=== PATIENT | male | born 1950 | race Caucasian/White ===

== ENCOUNTER 2018-12-23 15:54 | Emergency (ER) | payer MEDICARE, OTHER ==
[~2018-12-23] VITALS: Ht 167.6 cm; Wt 65.3 kg
[2018-12-23 16:15] VITALS: BP 161/79
[2018-12-23] MEDS ORDERED: LIDOCAINE 1%-EPI 1:100,000 20 ML VIAL ONE (16:47)
[2018-12-23] MEDS ORDERED: LIDOCAINE 1%-EPI 1:100,000 50 ML VIAL IJ ONE (17:00)
[2018-12-23] MEDS ORDERED: CEFAZOLIN 1 GM VIAL IM ONE (17:00)
[2018-12-23] MEDS ORDERED: WATER FOR INJECTION,STERILE 10 ML ONE (17:20)
--- NOTE | 2018-12-23 17:40 | NUR ---
Patient discharged to home in stable condition. Written and verbal after care instructions given. Patient verbalizes understanding of instruction.
== END 2018-12-23 17:39 | disposition home or self-care (01) ==
LOC: ER 15:54
DX: L02.11 Cutaneous abscess of neck (principal)
CPT/HCPCS: 10060; 96372; 99283; A6407; J0690; J3490 ×2

== ENCOUNTER 2023-08-21 22:07 | Inpatient (IN) | payer MEDICARE, OTHER ==
[~2023-08-21] VITALS: Ht 157.5 cm; Wt 54.9 kg
[2023-08-21] MEDS: LEVOFLOXACIN 750 MG /D5W 150ML PIGGYBACK IV ONE (01:30)
[2023-08-21] MEDS ORDERED: methylPREDNISolone SOD SUCC 125 MG/2ML VIAL ONE (22:33)
[2023-08-21] MEDS: ALBUTEROL FS 2.5 MG/3 ML VIAL.NEB NEB ONE (22:34)
[2023-08-21] MEDS: IPRATROPIUM NEB FS 0.5 MG/2.5 ML AMPUL.NEB NEB ONE (22:34)
[2023-08-21] MEDS ORDERED: ALBUTEROL FS 2.5 MG/3 ML VIAL.NEB ONE (22:35)
[2023-08-21] MEDS ORDERED: IPRATROPIUM NEB FS 0.5 MG/2.5 ML AMPUL.NEB ONE (22:35)
[2023-08-21 22:55] VITALS: O2SAT 94
[2023-08-21 22:59] LABS: BASOPHILS # (AUTO) 0.1 K/uL (0.0-0.2); BASOPHILS % (AUTO) 0.2 % (0.0-2.0); EOSINOPHILS % (AUTO) 0.1 % (0.0-6.0); HEMATOCRIT 39 % (39-51); HEMOGLOBIN 12.6 g/dL (13.5-17.5); LYMPHOCYTES # (AUTO) 0.7 K/uL (0.8-4.8); LYMPHOCYTES % (AUTO) 2.1 % (20.0-44.0); MEAN CORPUSCULAR HEMOGLOBIN 28 PG (26.0-33.0); MEAN CORPUSCULAR HGB CONC 33 g/dl (31.0-36.0); MEAN CORPUSCULAR VOLUME 86 fL (80-96); MONOCYTES # (AUTO) 3.5 K/uL (0.1-1.30); MONOCYTES % (AUTO) 11.3 % (2.0-12.0); NEUTROPHILS # (AUTO) 26.7 K/uL (1.8-8.9); NEUTROPHILS % (AUTO) 86.3 % (43.0-81.0); PLATELET COUNT (AUTO) 275 K/uL (150-450); RED BLOOD CELL COUNT(AUTO) 4.46 MIL/uL (4.5-6.0); RED CELL DISTRIBUTION WIDTH 15.5 % (11.5-15.0)
[2023-08-21] MEDS: methylPREDNISolone SOD SUCC 125 MG/2ML VIAL IV ONE (23:00)
[2023-08-21 23:08] LABS: WHITE BLOOD COUNT (AUTO) 30.9 K/uL (4.3-11.0)
[2023-08-21 23:10] VITALS: O2SAT 99
[2023-08-21 23:10] LABS: CALCIUM, SERUM 9.1 mg/dL (8.5-10.1); CARBON DIOXIDE 29 mmol/L (21-32); CHLORIDE 94 mmol/L (98-107); CREATININE 1.1 mg/dL (0.6-1.3); GLUCOSE 96 mg/dL (74-106); POTASSIUM 4.5 mmol/L (3.5-5.1); SODIUM SERUM 131 mmol/L (136-145); UREA NITROGEN, BLOOD 26 mg/dL (7-18)
[2023-08-21 23:16] LABS: ALANINE AMINOTRANSFERASE 31 U/L (12-78); ALBUMIN 1.8 g/dL (3.4-5.0); ALKALINE PHOSPHATASE 81 U/L (46-116); ASPARTATE AMINOTRANSFERASE 55 U/L (15-37); BILIRUBIN,TOTAL 1.4 mg/dL (0.2-1.0); TOTAL PROTEIN, SERUM 6.1 g/dL (6.4-8.2)
[2023-08-21 23:27] LABS: LACTIC ACID 4.2 mmol/L (0.4-2.0)
[2023-08-21] MEDS ORDERED: LEVOFLOXACIN 750 MG /D5W 150ML 150 ML IV ONE (23:37)
[2023-08-21] MEDS ORDERED: CEFTRIAXONE 1GM BAG (ER ONLY) 50 ML IV ONE (23:37)
[2023-08-21] MEDS ORDERED: VANCOMYCIN 1 GM /D5W 250 ML PB IV ONE (23:37)
[2023-08-21] MEDS: CEFTRIAXONE 1 G in IV D5W 50 ML IV ONE (23:45)
[2023-08-21] MEDS: IV NS 0.9% 1,000 ML BAG IV ONE (23:50)
[2023-08-21 23:59] LABS: NEUTROPHILS % (MANUAL) 84 (42-76)
[2023-08-22] VITALS (74 sets, daily range): BP systolic 83–144; BP diastolic 46–103; TEMP 97.2–98; O2SAT 96–100
[2023-08-22] LABS: BASOPHILS % (MANUAL) 0 % (0.0-2.0); EOSINOPHILS % (MANUAL) 0 % (0-4); LYMPHOCYTES % (MANUAL) 5 % (16-48); MONOCYTES % (MANUAL) 11 % (0-11.0); OVALOCYTES RARE; PLATELET ESTIMATE ADEQUATE
[2023-08-22] MEDS: VANCOMYCIN 1 GM in IV D5W 250 ML IV ONE
[2023-08-22] MEDS ORDERED: IOHEXOL-350 100 ML VIAL IV ONE (00:23)
[2023-08-22] MEDS ORDERED: CT SWABBABLE VALVE TRANS SET 1 EA INFUS.SET MC ONE (00:23)
[2023-08-22] MEDS ORDERED: IV NS 0.9% 250 ML IV ONE (00:24)
[2023-08-22 01:12] LABS: ABG BASE EXCESS 0.3 mmol/L; ABG OXYGEN SATURATION 94.9 % (92.0-98.5); ABG PH 7.467 (7.350-7.450); ABG PO2 74.5 mmHg (75.0-100.0); ABG TOTAL HEMOGLOBIN 13.5 G/dL (13.5-18.0); COHb 0.4 % (0.5-1.5); MetHb 0.1 % (0.0-1.5); O2Hb 94.4 % (94.0-97.0); SITE, ABG Left Radial; VENT MODE, BG nasal cannula
[2023-08-22] MEDS ORDERED: ACETAMINOPHEN 325 MG TABLET PO PRN (03:30)
[2023-08-22] MEDS: PROPOFOL 100 ML IV PRN ×2 (03:55→06:05)
[2023-08-22] MEDS ORDERED: PROPOFOL 100 ML IV PRN ×2 (04:00)
[2023-08-22] MEDS: PROPOFOL 100 ML ONE (04:04)
[2023-08-22] MEDS: IPRATROPIUM NEB FS 0.5 MG/2.5 ML AMPUL.NEB NEB SCH (04:11)
[2023-08-22] MEDS: ALBUTEROL HALF STRENGTH 1.25 MG/3 ML VIAL.NEB NEB SCH (04:11)
[2023-08-22] MEDS: ENOXAPARIN SODIUM 40 MG/0.4 ML DISP.SYRIN SQ SCH (04:24)
[2023-08-22] MEDS: PHENYLEPHRINE 10 MG/ML VIAL ONE (06:02)
[2023-08-22] MEDS: PHENYLEPHRINE 50 MG in IV NS 0.9% 245 ML IV PRN (06:04)
[2023-08-22 06:15] LABS: ABG BASE EXCESS -5.4 mmol/L; ABG OXYGEN SATURATION 99.4 % (92.0-98.5); ABG PCO2 70.1 mmHg (35.0-45.0); ABG PH 7.165 (7.350-7.450); ABG PO2 290.1 mmHg (75.0-100.0); ABG TOTAL HEMOGLOBIN 14.5 G/dL (13.5-18.0); MetHb 0.3 % (0.0-1.5); O2Hb 99.1 % (94.0-97.0); SITE, ABG Right Radial
[2023-08-22 06:15] LABS: ABG BASE EXCESS -2.1 mmol/L; ABG OXYGEN SATURATION 98.4 % (92.0-98.5); ABG PCO2 42.5 mmHg (35.0-45.0); ABG PH 7.357 (7.350-7.450); ABG PO2 134.4 mmHg (75.0-100.0); AaDO2 536.1 mmHg; COHb 0.5 % (0.5-1.5); MetHb 0.2 % (0.0-1.5); O2Hb 97.7 % (94.0-97.0); SITE, ABG Left Radial
[2023-08-22] MEDS: IV NS 0.9% 250 ML IV PRN (06:42)
[2023-08-22] MEDS: PIPERACI/TAZO 3.375GM/D5W 50ML PB IV ONE (06:45)
[2023-08-22] MEDS: ZOSYN IVPB 3.375 G in IV D5W 50ml IV SCH (06:45)
[2023-08-22 06:55] LABS: BASOPHILS # (AUTO) 0.1 K/uL (0.0-0.2); BASOPHILS % (AUTO) 0.3 % (0.0-2.0); EOSINOPHILS % (AUTO) 0.1 % (0.0-6.0); HEMATOCRIT 38 % (39-51); HEMOGLOBIN 12.2 g/dL (13.5-17.5); LYMPHOCYTES # (AUTO) 0.5 K/uL (0.8-4.8); LYMPHOCYTES % (AUTO) 2.4 % (20.0-44.0); MEAN CORPUSCULAR HEMOGLOBIN 28 PG (26.0-33.0); MEAN CORPUSCULAR HGB CONC 32 g/dl (31.0-36.0); MEAN CORPUSCULAR VOLUME 87 fL (80-96); MONOCYTES # (AUTO) 1.8 K/uL (0.1-1.30); MONOCYTES % (AUTO) 8.7 % (2.0-12.0); NEUTROPHILS # (AUTO) 18.3 K/uL (1.8-8.9); NEUTROPHILS % (AUTO) 88.5 % (43.0-81.0); PLATELET COUNT (AUTO) 218 K/uL (150-450); RED BLOOD CELL COUNT(AUTO) 4.33 MIL/uL (4.5-6.0); RED CELL DISTRIBUTION WIDTH 14.9 % (11.5-15.0); WHITE BLOOD COUNT (AUTO) 20.7 K/uL (4.3-11.0)
[2023-08-22 06:56] LABS: APPEARANCE,URINE SLIGHTLY CLOUDY (CLEAR); BILIRUBIN,URINE NEGATIVE (NEGATIVE); BLOOD, URINE NEGATIVE Ery/uL (NEGATIVE); COLOR,URINE YELLOW (YELLOW); KETONES,URINE NEGATIVE (NEGATIVE); LEUKOCYTE ESTERASE ,URINE NEGATIVE (NEGATIVE); NITRITE, URINE NEGATIVE (NEGATIVE); PH,URINE 5.5 (5.0-8.0); PROTEIN,URINE TRACE mg/dl (NEGATIVE); UGLUCOSE NEGATIVE (NEGATIVE)
[2023-08-22 06:58] LABS: ADD URINE CULTURE NO; BACTERIA,URINE None seen /HPF (None Seen); RBC,URINE 0-2 /HPF (0-2); SQUAMOUS EPITHELIAL CELL,UR Rare /HPF (None Seen); WBC,URINE 0-2 /HPF (0-3)
[2023-08-22 07:14] LABS: CALCIUM, SERUM 8.6 mg/dL (8.5-10.1); MAGNESIUM 1.9 mg/dL (1.8-2.4); PHOSPHORUS 4.5 mg/dL (2.5-4.9); POTASSIUM 4.5 mmol/L (3.5-5.1)
[2023-08-22 07:31] LABS: BARBITURATE, URINE NEGATIVE (NEGATIVE); BENZODIAZEPINE, URINE NEGATIVE (NEGATIVE); CANNABINOID, URINE NEGATIVE (NEGATIVE); COCCAINE, URINE NEGATIVE (NEGATIVE); PHENCYCLIDINE SCREEN,URINE NEGATIVE (NEGATIVE)
[2023-08-22 07:33] LABS: AMPHETAMINE, URINE POSITIVE (NEGATIVE); OPIATE, URINE POSITIVE (NEGATIVE)
[2023-08-22] MEDS: IV D5/ 0.9% NACL 1,000 ML IV PRN (10:11)
[2023-08-22] MEDS: methylPREDNISolone SOD SUCC 125 MG/2ML VIAL IV SCH (10:12)
[2023-08-22 10:37] LABS: INR 1.51 (0.91-1.10); PARTIAL THROMBOPLASTIN TIME 39.8 SEC (24.3-34.3); PROTHROMBIN TIME 15.6 SECS (9.2-11.1)
[2023-08-22] MEDS ORDERED: ETOMIDATE 2 MG/ML VIAL IV ONE (11:06)
[2023-08-22] MEDS: VANCOMYCIN 750 MG in IV D5W 250 ML IV SCH (12:33)
[2023-08-22] MEDS: PIPERACILLIN /TAZOBACTAM 3.375 G in IV D5W 100 ML IV SCH (21:10)
[2023-08-23] VITALS (98 sets, daily range): BP systolic 81–137; BP diastolic 38–82; TEMP 97.1–98.6; O2SAT 93–100
[2023-08-23 05:53] LABS: BASOPHILS # (AUTO) 0.1 K/uL (0.0-0.2); BASOPHILS % (AUTO) 0.2 % (0.0-2.0); EOSINOPHILS % (AUTO) 0.1 % (0.0-6.0); HEMATOCRIT 40 % (39-51); HEMOGLOBIN 13.2 g/dL (13.5-17.5); LYMPHOCYTES # (AUTO) 0.3 K/uL (0.8-4.8); LYMPHOCYTES % (AUTO) 1.1 % (20.0-44.0); MEAN CORPUSCULAR HEMOGLOBIN 28 PG (26.0-33.0); MEAN CORPUSCULAR HGB CONC 33 g/dl (31.0-36.0); MEAN CORPUSCULAR VOLUME 86 fL (80-96); MONOCYTES # (AUTO) 1.8 K/uL (0.1-1.30); NEUTROPHILS # (AUTO) 28.4 K/uL (1.8-8.9); NEUTROPHILS % (AUTO) 92.6 % (43.0-81.0); PLATELET COUNT (AUTO) 284 K/uL (150-450); RED BLOOD CELL COUNT(AUTO) 4.65 MIL/uL (4.5-6.0); RED CELL DISTRIBUTION WIDTH 15.3 % (11.5-15.0)
[2023-08-23 06:07] LABS: INR 1.25 (0.91-1.10); PROTHROMBIN TIME 13.1 SECS (9.2-11.1)
[2023-08-23 06:13] LABS: CALCIUM, SERUM 7.9 mg/dL (8.5-10.1); CREATININE 1.2 mg/dL (0.6-1.3); PHOSPHORUS 3.9 mg/dL (2.5-4.9); POTASSIUM 3.8 mmol/L (3.5-5.1)
[2023-08-23 06:14] LABS: WHITE BLOOD COUNT (AUTO) 30.6 K/uL (4.3-11.0)
[2023-08-23 06:50] LABS: ANISOCYTOSIS 1+; BAND % (MANUAL) 1 % (0.0-5.0); BASOPHILS % (MANUAL) 0 % (0.0-2.0); EOSINOPHILS % (MANUAL) 0 % (0-4); LYMPHOCYTES % (MANUAL) 3 % (16-48); MONOCYTES % (MANUAL) 5 % (0-11.0); NEUTROPHILS % (MANUAL) 91 (42-76); PLATELET ESTIMATE ADEQUATE
[2023-08-23] MEDS: IV NS 0.9% 500 ML IV ONE (08:46)
[2023-08-23] MEDS ORDERED: IV NS 0.9% 500 ML IV ONE (09:00)
[2023-08-23] MEDS: PROPOFOL 100 ML IV PRN (13:23)
[2023-08-24] VITALS (81 sets, daily range): BP systolic 80–149; BP diastolic 55–109; TEMP 96.9–97.7; O2SAT 92–100
[2023-08-24] MEDS: VANCOMYCIN 500 MG in IV D5W 100ml IV SCH (01:12)
[2023-08-24 05:11] LABS: BASOPHILS # (AUTO) 0.1 K/uL (0.0-0.2); BASOPHILS % (AUTO) 0.2 % (0.0-2.0); HEMATOCRIT 38 % (39-51); HEMOGLOBIN 12.6 g/dL (13.5-17.5); LYMPHOCYTES # (AUTO) 0.2 K/uL (0.8-4.8); LYMPHOCYTES % (AUTO) 0.7 % (20.0-44.0); MEAN CORPUSCULAR HEMOGLOBIN 28 PG (26.0-33.0); MEAN CORPUSCULAR HGB CONC 33 g/dl (31.0-36.0); MEAN CORPUSCULAR VOLUME 86 fL (80-96); MONOCYTES # (AUTO) 1.5 K/uL (0.1-1.30); MONOCYTES % (AUTO) 4.8 % (2.0-12.0); NEUTROPHILS % (AUTO) 94.3 % (43.0-81.0); PLATELET COUNT (AUTO) 231 K/uL (150-450); RED BLOOD CELL COUNT(AUTO) 4.42 MIL/uL (4.5-6.0); RED CELL DISTRIBUTION WIDTH 15.8 % (11.5-15.0)
[2023-08-24 05:27] LABS: WHITE BLOOD COUNT (AUTO) 30.8 K/uL (4.3-11.0)
[2023-08-24 06:07] LABS: BAND % (MANUAL) 4 % (0.0-5.0)
[2023-08-24 06:08] LABS: LYMPHOCYTES % (MANUAL) 4 % (16-48); MONOCYTES % (MANUAL) 4 % (0-11.0); NEUTROPHILS % (MANUAL) 88 (42-76)
[2023-08-24 06:09] LABS: PLATELET ESTIMATE ADEQUATE
[2023-08-24 06:38] LABS: CALCIUM, SERUM 8.6 mg/dL (8.5-10.1); MAGNESIUM 2.3 mg/dL (1.8-2.4); PHOSPHORUS 3.4 mg/dL (2.5-4.9); POTASSIUM 3.6 mmol/L (3.5-5.1); TOTAL PROTEIN, SERUM 4.7 g/dL (6.4-8.2)
[2023-08-24 07:22] LABS: ALBUMIN 1.1 g/dL (3.4-5.0)
[2023-08-24] MEDS ORDERED: DC PROPOFOL WHEN EXTUBATED XX PRN (09:00)
[2023-08-24 11:47] LABS: ABG OXYGEN SATURATION 97.4 % (92.0-98.5); ABG PCO2 32.7 mmHg (35.0-45.0); ABG PH 7.349 (7.350-7.450); ABG PO2 108.4 mmHg (75.0-100.0); ABG TOTAL HEMOGLOBIN 13.4 G/dL (13.5-18.0); AaDO2 130.1 mmHg; COHb 0.3 % (0.5-1.5); MetHb 0.2 % (0.0-1.5); O2Hb 96.9 % (94.0-97.0); PEEP,BG 5 cm H2O; SITE, ABG Left Brachial; VENT MODE, BG SIMV 4 / PS 15; VT, ABG 450 mL
[2023-08-24] MEDS ORDERED: AMIODARONE 150 MG in IV D5W 100 ML IV ONE (16:00)
[2023-08-24] MEDS ORDERED: AMIODARONE 450 MG in IV D5W 241 ML IV PRN (16:00)
[2023-08-24] MEDS: AMIODARONE 150 MG in IV D5W 100 ML IV ONE (16:00)
[2023-08-24] MEDS: AMIODARONE 450 MG in IV D5W 241 ML IV PRN (16:20)
[2023-08-25] VITALS (46 sets, daily range): BP systolic 85–165; BP diastolic 56–116; TEMP 95.6–97.6; O2SAT 72–99
[2023-08-25] MEDS: LORAZEPAM INJ 2 MG/ML VIAL IVP PRN (01:34)
[2023-08-25] MEDS: SODIUM BICARBONATE SYR 50 MEQ/50 ML DISP.SYRIN ONE (03:08)
[2023-08-25] MEDS: SODIUM BICARBONATE SYR 50 MEQ/50 ML DISP.SYRIN IV STA (03:09)
[2023-08-25 04:21] LABS: BASOPHILS # (AUTO) 0.1 K/uL (0.0-0.2); BASOPHILS % (AUTO) 0.2 % (0.0-2.0); HEMATOCRIT 40 % (39-51); HEMOGLOBIN 12.8 g/dL (13.5-17.5); LYMPHOCYTES # (AUTO) 0.3 K/uL (0.8-4.8); LYMPHOCYTES % (AUTO) 0.8 % (20.0-44.0); MEAN CORPUSCULAR HEMOGLOBIN 28 PG (26.0-33.0); MEAN CORPUSCULAR HGB CONC 32 g/dl (31.0-36.0); MEAN CORPUSCULAR VOLUME 88 fL (80-96); MONOCYTES # (AUTO) 1.9 K/uL (0.1-1.30); MONOCYTES % (AUTO) 6.1 % (2.0-12.0); NEUTROPHILS # (AUTO) 28.4 K/uL (1.8-8.9); NEUTROPHILS % (AUTO) 92.9 % (43.0-81.0); PLATELET COUNT (AUTO) 234 K/uL (150-450); RED BLOOD CELL COUNT(AUTO) 4.59 MIL/uL (4.5-6.0); RED CELL DISTRIBUTION WIDTH 15.8 % (11.5-15.0)
[2023-08-25 04:24] LABS: WHITE BLOOD COUNT (AUTO) 30.6 K/uL (4.3-11.0)
[2023-08-25 04:38] LABS: ANISOCYTOSIS 1+; BAND % (MANUAL) 3 % (0.0-5.0); BASOPHILS % (MANUAL) 0 % (0.0-2.0); EOSINOPHILS % (MANUAL) 0 % (0-4); LYMPHOCYTES % (MANUAL) 2 % (16-48); MONOCYTES % (MANUAL) 5 % (0-11.0); NEUTROPHILS % (MANUAL) 90 (42-76); OVALOCYTES 1+; PLATELET ESTIMATE ADEQUATE
[2023-08-25 04:49] LABS: CALCIUM, SERUM 8.7 mg/dL (8.5-10.1); CARBON DIOXIDE 23 mmol/L (21-32); CHLORIDE 107 mmol/L (98-107); CREATININE 1.2 mg/dL (0.6-1.3); GLUCOSE 304 mg/dL (74-106); MAGNESIUM 2.3 mg/dL (1.8-2.4); PHOSPHORUS 4.6 mg/dL (2.5-4.9); POTASSIUM 4.2 mmol/L (3.5-5.1); SODIUM SERUM 139 mmol/L (136-145); UREA NITROGEN, BLOOD 37 mg/dL (7-18)
[2023-08-25] MEDS: AMIODARONE HCL 200 MG TABLET PO SCH (16:40)
[2023-08-26] VITALS (26 sets, daily range): BP systolic 73–157; BP diastolic 52–132; TEMP 97.6–98.7; O2SAT 90–99
[2023-08-26 04:46] LABS: BASOPHILS % (AUTO) 0.1 % (0.0-2.0); EOSINOPHILS % (AUTO) 0.1 % (0.0-6.0); HEMATOCRIT 39 % (39-51); HEMOGLOBIN 12.6 g/dL (13.5-17.5); LYMPHOCYTES # (AUTO) 0.2 K/uL (0.8-4.8); LYMPHOCYTES % (AUTO) 0.9 % (20.0-44.0); MEAN CORPUSCULAR HEMOGLOBIN 29 PG (26.0-33.0); MEAN CORPUSCULAR HGB CONC 33 g/dl (31.0-36.0); MEAN CORPUSCULAR VOLUME 88 fL (80-96); MONOCYTES # (AUTO) 1.1 K/uL (0.1-1.30); MONOCYTES % (AUTO) 5.3 % (2.0-12.0); NEUTROPHILS # (AUTO) 19.2 K/uL (1.8-8.9); NEUTROPHILS % (AUTO) 93.6 % (43.0-81.0); PLATELET COUNT (AUTO) 121 K/uL (150-450); RED BLOOD CELL COUNT(AUTO) 4.36 MIL/uL (4.5-6.0); RED CELL DISTRIBUTION WIDTH 15.8 % (11.5-15.0); WHITE BLOOD COUNT (AUTO) 20.5 K/uL (4.3-11.0)
[2023-08-26 05:54] LABS: ALANINE AMINOTRANSFERASE < 6 U/L (12-78); ALKALINE PHOSPHATASE 59 U/L (46-116); ASPARTATE AMINOTRANSFERASE 19 U/L (15-37); BILIRUBIN,TOTAL 1.4 mg/dL (0.2-1.0); CALCIUM, SERUM 8.5 mg/dL (8.5-10.1); CARBON DIOXIDE 17 mmol/L (21-32); CHLORIDE 110 mmol/L (98-107); CREATININE 1.1 mg/dL (0.6-1.3); GLUCOSE 260 mg/dL (74-106); MAGNESIUM 2.3 mg/dL (1.8-2.4); PHOSPHORUS 2.8 mg/dL (2.5-4.9); POTASSIUM 4.1 mmol/L (3.5-5.1); SODIUM SERUM 139 mmol/L (136-145); TOTAL PROTEIN, SERUM 4.8 g/dL (6.4-8.2); UREA NITROGEN, BLOOD 36 mg/dL (7-18)
[2023-08-26 05:56] LABS: ALBUMIN 1.2 g/dL (3.4-5.0)
[2023-08-26] MEDS ORDERED: ALBUMIN 25% 25 GM in PREMIX 1 EA IV SCH ×2 (06:30→07:30)
[2023-08-26] MEDS: PROSOURCE / PROSTAT (PYXIS) 30 ML UDC PO SCH (08:30)
[2023-08-26] MEDS: ALBUMIN 25% 25 GM in PREMIX 1 EA IV ONE (08:56)
[2023-08-26] MEDS: PROPOFOL 100 ML IV PRN (10:28)
[2023-08-26] MEDS ORDERED: ETOMIDATE 2 MG/ML VIAL IV ONE (10:53)
[2023-08-26] MEDS: GLUCERNA SHAKE 237 ML CAN PO SCH (12:00)
[2023-08-26] MEDS ORDERED: ACETAMINOPHEN 650 MG/20.3 ML UDC GT PRN (15:30)
[2023-08-26] MEDS: AMIODARONE HCL 200 MG TABLET GT SCH (16:31)
[2023-08-26] MEDS: PROSOURCE / PROSTAT (PYXIS) 30 ML UDC GT SCH (16:32)
[2023-08-26] MEDS: GLUCERNA SHAKE 237 ML CAN GT SCH (16:32)
[2023-08-26 20:29] LABS: ABG BASE EXCESS -6.8 mmol/L; ABG OXYGEN SATURATION 99.5 % (92.0-98.5); ABG PCO2 37.7 mmHg (35.0-45.0); ABG PH 7.314 (7.350-7.450); ABG PO2 275.6 mmHg (75.0-100.0); ABG TOTAL HEMOGLOBIN 13.5 G/dL (13.5-18.0); AaDO2 225.5 mmHg; COHb 0.1 % (0.5-1.5); MetHb 0.3 % (0.0-1.5); O2Hb 99.1 % (94.0-97.0); SITE, ABG Right Radial
[2023-08-27] VITALS (26 sets, daily range): BP systolic 102–155; BP diastolic 55–90; TEMP 97.6–97.8; O2SAT 96–100
[2023-08-27] MEDS: IV NS 0.9% 250 ML IV PRN (04:30)
[2023-08-27 05:41] LABS: ALANINE AMINOTRANSFERASE 26 U/L (12-78); ALBUMIN 1.5 g/dL (3.4-5.0); ALKALINE PHOSPHATASE 54 U/L (46-116); ASPARTATE AMINOTRANSFERASE 14 U/L (15-37); BILIRUBIN,TOTAL 1.2 mg/dL (0.2-1.0); CALCIUM, SERUM 8.5 mg/dL (8.5-10.1); CARBON DIOXIDE 22 mmol/L (21-32); CHLORIDE 111 mmol/L (98-107); CREATININE 1.2 mg/dL (0.6-1.3); GLUCOSE 260 mg/dL (74-106); MAGNESIUM 2.5 mg/dL (1.8-2.4); PHOSPHORUS 2.9 mg/dL (2.5-4.9); POTASSIUM 3.9 mmol/L (3.5-5.1); SODIUM SERUM 141 mmol/L (136-145); TOTAL PROTEIN, SERUM 4.6 g/dL (6.4-8.2); UREA NITROGEN, BLOOD 40 mg/dL (7-18)
[2023-08-27 09:57] LABS: BASOPHILS % (AUTO) 0.2 % (0.0-2.0); EOSINOPHILS % (AUTO) 0.1 % (0.0-6.0); HEMATOCRIT 27 % (39-51); LYMPHOCYTES # (AUTO) 0.2 K/uL (0.8-4.8); LYMPHOCYTES % (AUTO) 1.8 % (20.0-44.0); MEAN CORPUSCULAR HEMOGLOBIN 30 PG (26.0-33.0); MEAN CORPUSCULAR HGB CONC 33 g/dl (31.0-36.0); MEAN CORPUSCULAR VOLUME 88 fL (80-96); MONOCYTES # (AUTO) 0.6 K/uL (0.1-1.30); MONOCYTES % (AUTO) 5.7 % (2.0-12.0); NEUTROPHILS # (AUTO) 9.3 K/uL (1.8-8.9); NEUTROPHILS % (AUTO) 92.2 % (43.0-81.0); PLATELET COUNT (AUTO) 83 K/uL (150-450); RED BLOOD CELL COUNT(AUTO) 3.04 MIL/uL (4.5-6.0); RED CELL DISTRIBUTION WIDTH 16.4 % (11.5-15.0); WHITE BLOOD COUNT (AUTO) 10.1 K/uL (4.3-11.0)
[2023-08-27 10:27] LABS: NEUTROPHILS % (MANUAL) 96 (42-76)
[2023-08-27 10:28] LABS: ANISOCYTOSIS 1+; LYMPHOCYTES % (MANUAL) 1 % (16-48); MONOCYTES % (MANUAL) 3 % (0-11.0); PLATELET ESTIMATE DECREASED
[2023-08-28] VITALS (25 sets, daily range): BP systolic 92–151; BP diastolic 59–95; TEMP 97.6–97.8; O2SAT 94–100
[2023-08-28 04:52] LABS: BASOPHILS % (AUTO) 0.2 % (0.0-2.0); EOSINOPHILS % (AUTO) 0.1 % (0.0-6.0); HEMATOCRIT 30 % (39-51); HEMOGLOBIN 10.4 g/dL (13.5-17.5); LYMPHOCYTES # (AUTO) 0.1 K/uL (0.8-4.8); LYMPHOCYTES % (AUTO) 1.3 % (20.0-44.0); MEAN CORPUSCULAR HEMOGLOBIN 30 PG (26.0-33.0); MEAN CORPUSCULAR HGB CONC 34 g/dl (31.0-36.0); MEAN CORPUSCULAR VOLUME 87 fL (80-96); MONOCYTES # (AUTO) 0.4 K/uL (0.1-1.30); MONOCYTES % (AUTO) 3.9 % (2.0-12.0); NEUTROPHILS % (AUTO) 94.5 % (43.0-81.0); PLATELET COUNT (AUTO) 99 K/uL (150-450); RED BLOOD CELL COUNT(AUTO) 3.49 MIL/uL (4.5-6.0); RED CELL DISTRIBUTION WIDTH 16.4 % (11.5-15.0); WHITE BLOOD COUNT (AUTO) 10.6 K/uL (4.3-11.0)
[2023-08-28 05:14] LABS: BILIRUBIN,TOTAL 1.4 mg/dL (0.2-1.0); CALCIUM, SERUM 8.6 mg/dL (8.5-10.1); MAGNESIUM 2.4 mg/dL (1.8-2.4); PHOSPHORUS 3.4 mg/dL (2.5-4.9); POTASSIUM 4.2 mmol/L (3.5-5.1); TOTAL PROTEIN, SERUM 4.4 g/dL (6.4-8.2)
[2023-08-28 05:17] LABS: ALBUMIN 1.4 g/dL (3.4-5.0)
[2023-08-28] MEDS: ALBUMIN 25% 25 GM in PREMIX 1 EA IV SCH (05:45)
[2023-08-28] MEDS: ALBUMIN 25% 100 ML IV ONE (06:00)
[2023-08-28] MEDS: GLUCERNA 1.2 1,000 ML BOTTLE NG PRN (08:42)
[2023-08-28] MEDS: IV D5W 1,000 ML IV PRN (08:49)
[2023-08-28] MEDS: FUROSEMIDE 40 MG/4 ML VIAL IV SCH (10:02)
[2023-08-29] VITALS (36 sets, daily range): BP systolic 99–187; BP diastolic 55–100; TEMP 97.2–98.6; O2SAT 86–100
[2023-08-29 04:56] LABS: BASOPHILS # (AUTO) 0.1 K/uL (0.0-0.2); BASOPHILS % (AUTO) 0.6 % (0.0-2.0); EOSINOPHILS % (AUTO) 0.3 % (0.0-6.0); HEMATOCRIT 29 % (39-51); HEMOGLOBIN 9.8 g/dL (13.5-17.5); LYMPHOCYTES # (AUTO) 0.1 K/uL (0.8-4.8); LYMPHOCYTES % (AUTO) 1.3 % (20.0-44.0); MEAN CORPUSCULAR HEMOGLOBIN 29 PG (26.0-33.0); MEAN CORPUSCULAR HGB CONC 33 g/dl (31.0-36.0); MEAN CORPUSCULAR VOLUME 87 fL (80-96); MONOCYTES # (AUTO) 0.2 K/uL (0.1-1.30); MONOCYTES % (AUTO) 2.5 % (2.0-12.0); NEUTROPHILS # (AUTO) 9.2 K/uL (1.8-8.9); NEUTROPHILS % (AUTO) 95.3 % (43.0-81.0); PLATELET COUNT (AUTO) 102 K/uL (150-450); RED BLOOD CELL COUNT(AUTO) 3.38 MIL/uL (4.5-6.0); RED CELL DISTRIBUTION WIDTH 16.3 % (11.5-15.0); WHITE BLOOD COUNT (AUTO) 9.7 K/uL (4.3-11.0)
[2023-08-29 05:18] LABS: ALBUMIN 2.2 g/dL (3.4-5.0); BILIRUBIN,TOTAL 1.4 mg/dL (0.2-1.0); CALCIUM, SERUM 8.9 mg/dL (8.5-10.1); CREATININE 1.1 mg/dL (0.6-1.3); MAGNESIUM 2.5 mg/dL (1.8-2.4); PHOSPHORUS 4.3 mg/dL (2.5-4.9); POTASSIUM 3.9 mmol/L (3.5-5.1); TOTAL PROTEIN, SERUM 4.9 g/dL (6.4-8.2)
[2023-08-29] MEDS: FUROSEMIDE 40 MG/4 ML VIAL IV SCH (09:27)
[2023-08-29 12:36] LABS: PROTEIN, BODY FLUID 1.5 G/DL
[2023-08-29] MEDS: METOCLOPRAMIDE HCL 10 MG/2 ML VIAL IV SCH (12:49)
[2023-08-29 13:45] LABS: WBC, BODY FLUID 1338 /cu. mm. (0-200)
[2023-08-29 13:57] LABS: APPEARANCE,SPUN,BODY FLUID HAZY (CLEAR)
[2023-08-29 13:59] LABS: TOTAL VOLUME,BODY FLUID 6 mL
[2023-08-29 14:00] LABS: MONOCYTES,BODY FLUID 8 %; POLYNUCLEAR, BODY FLUID 71 % (0-25)
[2023-08-29] MEDS: VITAL AF 1.2 1,000 ML BOTTLE GT PRN (14:22)
[2023-08-29] MEDS: VANCOMYCIN 750 MG in IV D5W 250 ML IV SCH (15:18)
[2023-08-30] VITALS (37 sets, daily range): BP systolic 85–129; BP diastolic 56–88; TEMP 97.2–97.8; O2SAT 93–100
[2023-08-30 05:14] LABS: ALBUMIN 1.6 g/dL (3.4-5.0); BILIRUBIN,TOTAL 1.1 mg/dL (0.2-1.0); CALCIUM, SERUM 8.1 mg/dL (8.5-10.1); MAGNESIUM 2.4 mg/dL (1.8-2.4); PHOSPHORUS 3.9 mg/dL (2.5-4.9); POTASSIUM 4.5 mmol/L (3.5-5.1); TOTAL PROTEIN, SERUM 4.2 g/dL (6.4-8.2)
[2023-08-30 08:57] LABS: BASOPHILS % (AUTO) 0.2 % (0.0-2.0); EOSINOPHILS # (AUTO) 0.6 K/uL (0.0-0.7); EOSINOPHILS % (AUTO) 3.1 % (0.0-6.0); HEMATOCRIT 36 % (39-51); HEMOGLOBIN 11.7 g/dL (13.5-17.5); LYMPHOCYTES # (AUTO) 0.5 K/uL (0.8-4.8); LYMPHOCYTES % (AUTO) 2.7 % (20.0-44.0); MEAN CORPUSCULAR HEMOGLOBIN 28 PG (26.0-33.0); MEAN CORPUSCULAR HGB CONC 32 g/dl (31.0-36.0); MEAN CORPUSCULAR VOLUME 88 fL (80-96); MONOCYTES # (AUTO) 0.8 K/uL (0.1-1.30); MONOCYTES % (AUTO) 4.5 % (2.0-12.0); NEUTROPHILS # (AUTO) 15.8 K/uL (1.8-8.9); NEUTROPHILS % (AUTO) 89.5 % (43.0-81.0); PLATELET COUNT (AUTO) 112 K/uL (150-450); RED BLOOD CELL COUNT(AUTO) 4.12 MIL/uL (4.5-6.0); RED CELL DISTRIBUTION WIDTH 16.1 % (11.5-15.0); WHITE BLOOD COUNT (AUTO) 17.7 K/uL (4.3-11.0)
[2023-08-31] VITALS (26 sets, daily range): BP systolic 92–150; BP diastolic 56–87; TEMP 97.3–98.1; O2SAT 94–100
[2023-08-31] MEDS: IV NS 0.9% 250 ML IV PRN (04:02)
[2023-08-31 05:09] LABS: CALCIUM, SERUM 8.4 mg/dL (8.5-10.1); CARBON DIOXIDE 22 mmol/L (21-32); CHLORIDE 103 mmol/L (98-107); CREATININE 1.1 mg/dL (0.6-1.3); GLUCOSE 370 mg/dL (74-106); POTASSIUM 4.1 mmol/L (3.5-5.1); SODIUM SERUM 134 mmol/L (136-145); UREA NITROGEN, BLOOD 53 mg/dL (7-18)
[2023-08-31 07:05] LABS: BASOPHILS % (AUTO) 0.2 % (0.0-2.0); EOSINOPHILS # (AUTO) 0.1 K/uL (0.0-0.7); EOSINOPHILS % (AUTO) 0.3 % (0.0-6.0); HEMATOCRIT 33 % (39-51); HEMOGLOBIN 11.2 g/dL (13.5-17.5); LYMPHOCYTES # (AUTO) 0.2 K/uL (0.8-4.8); LYMPHOCYTES % (AUTO) 1.1 % (20.0-44.0); MEAN CORPUSCULAR HEMOGLOBIN 29 PG (26.0-33.0); MEAN CORPUSCULAR HGB CONC 34 g/dl (31.0-36.0); MEAN CORPUSCULAR VOLUME 86 fL (80-96); MONOCYTES # (AUTO) 0.5 K/uL (0.1-1.30); MONOCYTES % (AUTO) 2.5 % (2.0-12.0); NEUTROPHILS # (AUTO) 18.6 K/uL (1.8-8.9); NEUTROPHILS % (AUTO) 95.9 % (43.0-81.0); PLATELET COUNT (AUTO) 102 K/uL (150-450); RED CELL DISTRIBUTION WIDTH 16.4 % (11.5-15.0); WHITE BLOOD COUNT (AUTO) 19.5 K/uL (4.3-11.0)
[2023-08-31 11:39] LABS: INR 1.21 (0.91-1.10); PROTHROMBIN TIME 12.7 SECS (9.2-11.1)
[2023-09-01] VITALS (45 sets, daily range): BP systolic 96–168; BP diastolic 56–122; TEMP 97.4–97.9; O2SAT 93–100
[2023-09-01 04:24] LABS: BASOPHILS % (AUTO) 0.1 % (0.0-2.0); EOSINOPHILS % (AUTO) 0.1 % (0.0-6.0); HEMATOCRIT 33 % (39-51); HEMOGLOBIN 10.8 g/dL (13.5-17.5); LYMPHOCYTES # (AUTO) 0.2 K/uL (0.8-4.8); LYMPHOCYTES % (AUTO) 0.9 % (20.0-44.0); MEAN CORPUSCULAR HEMOGLOBIN 29 PG (26.0-33.0); MEAN CORPUSCULAR HGB CONC 33 g/dl (31.0-36.0); MEAN CORPUSCULAR VOLUME 87 fL (80-96); MONOCYTES # (AUTO) 0.3 K/uL (0.1-1.30); MONOCYTES % (AUTO) 1.6 % (2.0-12.0); NEUTROPHILS % (AUTO) 97.3 % (43.0-81.0); PLATELET COUNT (AUTO) 97 K/uL (150-450); RED BLOOD CELL COUNT(AUTO) 3.77 MIL/uL (4.5-6.0); WHITE BLOOD COUNT (AUTO) 17.5 K/uL (4.3-11.0)
[2023-09-01 04:44] LABS: D-DIMER 3.03 mg/L(FEU (0.17-0.50); INR 1.11 (0.91-1.10); PARTIAL THROMBOPLASTIN TIME 25.5 SEC (24.3-34.3); PROTHROMBIN TIME 11.7 SECS (9.2-11.1)
[2023-09-01 04:51] LABS: BAND % (MANUAL) 2 % (0.0-5.0); LYMPHOCYTES % (MANUAL) 3 % (16-48); MONOCYTES % (MANUAL) 2 % (0-11.0); NEUTROPHILS % (MANUAL) 93 (42-76)
[2023-09-01 04:52] LABS: PLATELET ESTIMATE DECREASED
[2023-09-01 04:53] LABS: FERRITIN 362 ng/mL (8-388)
[2023-09-01 05:09] LABS: CALCIUM, SERUM 8.7 mg/dL (8.5-10.1); CARBON DIOXIDE 26 mmol/L (21-32); CHLORIDE 100 mmol/L (98-107); CREATININE 1.1 mg/dL (0.6-1.3); SODIUM SERUM 134 mmol/L (136-145); UREA NITROGEN, BLOOD 55 mg/dL (7-18)
[2023-09-01 05:31] LABS: IRON, SERUM 53 ug/dl (50-175); TOTAL IRON BINDING CAPACITY 158 ug/dl (250-450)
[2023-09-01 05:32] LABS: GLUCOSE 443 mg/dL (74-106)
[2023-09-01 05:34] LABS: C-REACTIVE PROTEIN 0.76 mg/dL (0.0-0.30)
[2023-09-01 05:58] LABS: RHEUMATOID FACTOR SCREEN NEGATIVE (NEGATIVE)
[2023-09-01] MEDS ORDERED: DC PROPOFOL WHEN EXTUBATED XX PRN (10:00)
[2023-09-01] MEDS: BLOOD SUGAR DIAGNOSTIC 1 EACH STRIP IN SCH (12:07)
[2023-09-01] MEDS: INSULIN REGULAR, HUMAN 100 UNIT/ML 3 ML VIAL SQ PRN (12:08)
[2023-09-01] MEDS ORDERED: GLUCERNA 1.2 1,000 ML BOTTLE NG PRN (16:30)
[2023-09-01 21:01] LABS: HIV-1 p24 ANTIGEN NON REACTIVE (NONREACTIVE); HIV-1/2 ANTIBODY NON REACTIVE (NONREACTIVE)
[2023-09-01] MEDS: GLUCERNA 1.2 1,000 ML BOTTLE NG PRN (21:13)
[2023-09-01] MEDS: INSULIN GLARGINE, 100 UNIT/ML CARTRIDGE SQ SCH (21:16)
[2023-09-01] MEDS: CEFEPIME 2 GM in IV D5W 100 ML IV SCH (21:33)
[2023-09-01] MEDS: hydrALAZINE HCL IV 20 MG VIAL IV PRN (22:36)
[2023-09-01] MEDS: ONDANSETRON HCL/PF 4 MG/2 ML VIAL IVP PRN (23:54)
[2023-09-02] VITALS (36 sets, daily range): BP systolic 94–152; BP diastolic 15–107; TEMP 97.5–98.2; O2SAT 90–100
[2023-09-02 04:40] LABS: BASOPHILS # (AUTO) 0.1 K/uL (0.0-0.2); BASOPHILS % (AUTO) 0.2 % (0.0-2.0); HEMATOCRIT 39 % (39-51); HEMOGLOBIN 12.7 g/dL (13.5-17.5); LYMPHOCYTES # (AUTO) 0.2 K/uL (0.8-4.8); LYMPHOCYTES % (AUTO) 0.5 % (20.0-44.0); MEAN CORPUSCULAR HEMOGLOBIN 28 PG (26.0-33.0); MEAN CORPUSCULAR HGB CONC 32 g/dl (31.0-36.0); MEAN CORPUSCULAR VOLUME 87 fL (80-96); MONOCYTES # (AUTO) 1.2 K/uL (0.1-1.30); MONOCYTES % (AUTO) 2.8 % (2.0-12.0); NEUTROPHILS # (AUTO) 42.6 K/uL (1.8-8.9); NEUTROPHILS % (AUTO) 96.5 % (43.0-81.0); PLATELET COUNT (AUTO) 134 K/uL (150-450); RED BLOOD CELL COUNT(AUTO) 4.49 MIL/uL (4.5-6.0)
[2023-09-02 04:49] LABS: CALCIUM, SERUM 9.2 mg/dL (8.5-10.1); CREATININE 0.7 mg/dL (0.6-1.3)
[2023-09-02 05:00] LABS: WHITE BLOOD COUNT (AUTO) 44.2 K/uL (4.3-11.0)
[2023-09-02 05:11] LABS: D-DIMER 5.07 mg/L(FEU (0.17-0.50); INR 1.17 (0.91-1.10); PARTIAL THROMBOPLASTIN TIME 23.8 SEC (24.3-34.3); PROTHROMBIN TIME 12.3 SECS (9.2-11.1)
[2023-09-02 05:15] LABS: ANISOCYTOSIS 1+; BAND % (MANUAL) 4 % (0.0-5.0); BASOPHILS % (MANUAL) 0 % (0.0-2.0); EOSINOPHILS % (MANUAL) 0 % (0-4); LYMPHOCYTES % (MANUAL) 2 % (16-48); MONOCYTES % (MANUAL) 3 % (0-11.0); NEUTROPHILS % (MANUAL) 91 (42-76); PLATELET ESTIMATE ADEQUATE
[2023-09-02 08:06] LABS: FOLIC ACID 2.6 ng/mL (>3.0)
[2023-09-02 10:11] LABS: *ANA ANTI-CENTROMERE B AB <0.2 AI (0.0-0.9); *ANA ANTI-DNA(DS) AB, QN <1 IU/mL (0-9); *ANA ANTI-JO-1 <0.2 AI (0.0-0.9); *ANA ANTICHROMATIN ANTIBODY 2.9 AI (0.0-0.9); *ANA RNP ANTIBODIES <0.2 AI (0.0-0.9); *ANA SJOGREN'S ANTI-SS-A <0.2 AI (0.0-0.9); *ANA SJOGREN'S ANTI-SS-B <0.2 AI (0.0-0.9); *ANAANTI-SCLERODERMA-70 AB <0.2 AI (0.0-0.9); *ANASMITH AB <0.2 AI (0.0-0.9)
[2023-09-02 11:07] LABS: HEPATITIS B SURFACE AB Reactive (.)
[2023-09-02 14:07] LABS: FREE KAPPA LT CHAINS SERUM 23.6 mg/L (3.3-19.4); IMMUNOGLOBULIN A, SERUM 106 mg/dL (61-437); IMMUNOGLOBULIN G, SERUM 606 mg/dL (603-1613); IMMUNOGLOBULIN M, SERUM 66 mg/dL (15-143); KAPPA/LAMBDA RATIO SERUM 0.87 (0.26-1.65)
[2023-09-02] MEDS: NEPRO 1,000 ML BOTTLE GT PRN (17:14)
[2023-09-03] VITALS (31 sets, daily range): BP systolic 81–144; BP diastolic 48–122; TEMP 98.1–98.4; O2SAT 90–100
[2023-09-03] MEDS: TEMAZEPAM 15 MG CAPSULE PO PRN (00:01)
[2023-09-03 04:56] LABS: BASOPHILS # (AUTO) 0.2 K/uL (0.0-0.2); BASOPHILS % (AUTO) 0.4 % (0.0-2.0); EOSINOPHILS # (AUTO) 0.6 K/uL (0.0-0.7); EOSINOPHILS % (AUTO) 1.1 % (0.0-6.0); HEMATOCRIT 44 % (39-51); HEMOGLOBIN 13.9 g/dL (13.5-17.5); LYMPHOCYTES # (AUTO) 0.7 K/uL (0.8-4.8); LYMPHOCYTES % (AUTO) 1.3 % (20.0-44.0); MEAN CORPUSCULAR HEMOGLOBIN 29 PG (26.0-33.0); MEAN CORPUSCULAR HGB CONC 32 g/dl (31.0-36.0); MEAN CORPUSCULAR VOLUME 90 fL (80-96); MONOCYTES # (AUTO) 2.1 K/uL (0.1-1.30); NEUTROPHILS # (AUTO) 49.1 K/uL (1.8-8.9); NEUTROPHILS % (AUTO) 93.2 % (43.0-81.0); PLATELET COUNT (AUTO) 114 K/uL (150-450); RED BLOOD CELL COUNT(AUTO) 4.83 MIL/uL (4.5-6.0); RED CELL DISTRIBUTION WIDTH 16.9 % (11.5-15.0)
[2023-09-03 05:01] LABS: WHITE BLOOD COUNT (AUTO) 52.6 K/uL (4.3-11.0)
[2023-09-03 05:10] LABS: CALCIUM, SERUM 8.5 mg/dL (8.5-10.1); CREATININE 0.7 mg/dL (0.6-1.3); POTASSIUM 4.3 mmol/L (3.5-5.1)
[2023-09-03 05:18] LABS: INR 1.24 (0.91-1.10); PARTIAL THROMBOPLASTIN TIME 25.5 SEC (24.3-34.3)
[2023-09-03 05:22] LABS: D-DIMER 4.5 mg/L(FEU (0.17-0.50)
[2023-09-03 05:30] LABS: BAND % (MANUAL) 2 % (0.0-5.0); BASOPHILS % (MANUAL) 0 % (0.0-2.0); EOSINOPHILS % (MANUAL) 0 % (0-4); LYMPHOCYTES % (MANUAL) 2 % (16-48); MONOCYTES % (MANUAL) 3 % (0-11.0); NEUTROPHILS % (MANUAL) 93 (42-76)
[2023-09-03 05:31] LABS: ANISOCYTOSIS 1+; PLATELET ESTIMATE DECREASED
[2023-09-03] MEDS: methylPREDNISolone SOD SUCC 125 MG/2ML VIAL IV SCH (08:08)
[2023-09-03] MEDS: AMIODARONE 150 MG in IV D5W 100 ML IV ONE (08:31)
[2023-09-03] MEDS: AMIODARONE 450 MG in IV D5W 241 ML IV PRN (09:08)
[2023-09-03] MEDS: METRONIDAZOLE 500MG/ NS 100ML 500 MG in PREMIX 1 EA IV SCH (18:31)
[2023-09-04] VITALS (40 sets, daily range): BP systolic 94–154; BP diastolic 31–119; TEMP 97.5–98.5; O2SAT 90–100
[2023-09-04 04:47] LABS: CREATININE 0.6 mg/dL (0.6-1.3); POTASSIUM 4.1 mmol/L (3.5-5.1)
[2023-09-04 04:57] LABS: BASOPHILS # (AUTO) 0.4 K/uL (0.0-0.2); BASOPHILS % (AUTO) 0.7 % (0.0-2.0); EOSINOPHILS # (AUTO) 0.4 K/uL (0.0-0.7); EOSINOPHILS % (AUTO) 0.8 % (0.0-6.0); HEMATOCRIT 37 % (39-51); HEMOGLOBIN 11.8 g/dL (13.5-17.5); LYMPHOCYTES # (AUTO) 0.7 K/uL (0.8-4.8); LYMPHOCYTES % (AUTO) 1.3 % (20.0-44.0); MEAN CORPUSCULAR HEMOGLOBIN 28 PG (26.0-33.0); MEAN CORPUSCULAR HGB CONC 32 g/dl (31.0-36.0); MEAN CORPUSCULAR VOLUME 87 fL (80-96); MONOCYTES # (AUTO) 2.1 K/uL (0.1-1.30); MONOCYTES % (AUTO) 4.1 % (2.0-12.0); NEUTROPHILS # (AUTO) 48.7 K/uL (1.8-8.9); NEUTROPHILS % (AUTO) 93.1 % (43.0-81.0); PLATELET COUNT (AUTO) 91 K/uL (150-450); RED CELL DISTRIBUTION WIDTH 16.2 % (11.5-15.0)
[2023-09-04 05:10] LABS: ABG BASE EXCESS 2.7 mmol/L; ABG OXYGEN SATURATION 98.6 % (92.0-98.5); ABG PCO2 48.4 mmHg (35.0-45.0); ABG PH 7.387 (7.350-7.450); ABG PO2 138.9 mmHg (75.0-100.0); ABG TOTAL HEMOGLOBIN 13.2 G/dL (13.5-18.0); AaDO2 90.6 mmHg; COHb 0.6 % (0.5-1.5); MetHb 0.1 % (0.0-1.5); O2Hb 97.9 % (94.0-97.0); SITE, ABG Right Radial; VENT MODE, BG 5LPM
[2023-09-04 05:22] LABS: WHITE BLOOD COUNT (AUTO) 52.3 K/uL (4.3-11.0)
[2023-09-04 05:36] LABS: D-DIMER 3.58 mg/L(FEU (0.17-0.50); INR 1.2 (0.91-1.10); PARTIAL THROMBOPLASTIN TIME 26.5 SEC (24.3-34.3); PROTHROMBIN TIME 12.6 SECS (9.2-11.1)
[2023-09-04 05:47] LABS: ANISOCYTOSIS 1+; EOSINOPHILS % (MANUAL) 3 % (0-4); LYMPHOCYTES % (MANUAL) 2 % (16-48); MONOCYTES % (MANUAL) 2 % (0-11.0); NEUTROPHILS % (MANUAL) 93 (42-76); PLATELET ESTIMATE DECREASED
[2023-09-04] MEDS: AMIODARONE HCL 200 MG TABLET NG SCH (12:15)
[2023-09-04] MEDS: VANCOMYCIN 1 GM in IV D5W 250ml IV SCH (14:13)
[2023-09-04] MEDS: METRONIDAZOLE 500 MG TABLET NG SCH (20:29)
[2023-09-05] VITALS (42 sets, daily range): BP systolic 93–148; BP diastolic 48–113; TEMP 96.8–98.5; O2SAT 84–99
[2023-09-05] MEDS: DEXTROSE 50%-WATER 50 ML DISP.SYRIN IV PRN (05:49)
[2023-09-05] MEDS: AMIODARONE HCL 200 MG TABLET NG SCH (13:00)
[2023-09-05 13:09] LABS: ABG OXYGEN SATURATION 94.8 % (92.0-98.5); ABG PCO2 44.1 mmHg (35.0-45.0); ABG PH 7.456 (7.350-7.450); ABG PO2 74.8 mmHg (75.0-100.0); ABG TOTAL HEMOGLOBIN 12.1 G/dL (13.5-18.0); SITE, ABG Right Radial
[2023-09-05 13:10] LABS: ABG BASE EXCESS 5.8 mmol/L; AaDO2 304.5 mmHg; COHb 0.4 % (0.5-1.5); O2Hb 94.4 % (94.0-97.0); VENT MODE, BG HFNC 50L 60%
[2023-09-05 16:40] LABS: BASOPHILS # (AUTO) 0.1 K/uL (0.0-0.2); BASOPHILS % (AUTO) 0.1 % (0.0-2.0); EOSINOPHILS % (AUTO) 0.1 % (0.0-6.0); HEMATOCRIT 35 % (39-51); HEMOGLOBIN 11.2 g/dL (13.5-17.5); LYMPHOCYTES # (AUTO) 0.2 K/uL (0.8-4.8); LYMPHOCYTES % (AUTO) 0.5 % (20.0-44.0); MEAN CORPUSCULAR HEMOGLOBIN 29 PG (26.0-33.0); MEAN CORPUSCULAR HGB CONC 32 g/dl (31.0-36.0); MEAN CORPUSCULAR VOLUME 89 fL (80-96); MONOCYTES # (AUTO) 0.6 K/uL (0.1-1.30); MONOCYTES % (AUTO) 1.5 % (2.0-12.0); NEUTROPHILS # (AUTO) 42.1 K/uL (1.8-8.9); NEUTROPHILS % (AUTO) 97.8 % (43.0-81.0); PLATELET COUNT (AUTO) 79 K/uL (150-450); RED BLOOD CELL COUNT(AUTO) 3.94 MIL/uL (4.5-6.0); RED CELL DISTRIBUTION WIDTH 16.7 % (11.5-15.0)
[2023-09-05 16:51] LABS: CREATININE 0.6 mg/dL (0.6-1.3); POTASSIUM 4.7 mmol/L (3.5-5.1)
[2023-09-05 18:21] LABS: BAND % (MANUAL) 1 % (0.0-5.0); LYMPHOCYTES % (MANUAL) 3 % (16-48); MONOCYTES % (MANUAL) 3 % (0-11.0); NEUTROPHILS % (MANUAL) 93 (42-76)
[2023-09-05] MEDS: METOCLOPRAMIDE HCL 10 MG/2 ML VIAL IV SCH (23:30)
[2023-09-06] VITALS (42 sets, daily range): BP systolic 81–136; BP diastolic 55–99; TEMP 96.5–97.9; O2SAT 91–100
[2023-09-06 04:56] LABS: BASOPHILS # (AUTO) 0.1 K/uL (0.0-0.2); BASOPHILS % (AUTO) 0.2 % (0.0-2.0); EOSINOPHILS # (AUTO) 0.1 K/uL (0.0-0.7); EOSINOPHILS % (AUTO) 0.3 % (0.0-6.0); HEMATOCRIT 35 % (39-51); HEMOGLOBIN 11.2 g/dL (13.5-17.5); LYMPHOCYTES # (AUTO) 0.4 K/uL (0.8-4.8); MEAN CORPUSCULAR HEMOGLOBIN 28 PG (26.0-33.0); MEAN CORPUSCULAR HGB CONC 32 g/dl (31.0-36.0); MEAN CORPUSCULAR VOLUME 87 fL (80-96); MONOCYTES # (AUTO) 1.5 K/uL (0.1-1.30); MONOCYTES % (AUTO) 3.4 % (2.0-12.0); NEUTROPHILS # (AUTO) 41.3 K/uL (1.8-8.9); NEUTROPHILS % (AUTO) 95.1 % (43.0-81.0); PLATELET COUNT (AUTO) 90 K/uL (150-450); RED CELL DISTRIBUTION WIDTH 16.8 % (11.5-15.0)
[2023-09-06 05:01] LABS: ALBUMIN 1.7 g/dL (3.4-5.0); BILIRUBIN,TOTAL 1.1 mg/dL (0.2-1.0); CALCIUM, SERUM 8.9 mg/dL (8.5-10.1); CREATININE 0.6 mg/dL (0.6-1.3); POTASSIUM 4.5 mmol/L (3.5-5.1); TOTAL PROTEIN, SERUM 4.5 g/dL (6.4-8.2); WHITE BLOOD COUNT (AUTO) 43.4 K/uL (4.3-11.0)
[2023-09-06 05:45] LABS: ANISOCYTOSIS 1+; BAND % (MANUAL) 2 % (0.0-5.0); BASOPHILS % (MANUAL) 0 % (0.0-2.0); EOSINOPHILS % (MANUAL) 0 % (0-4); LYMPHOCYTES % (MANUAL) 2 % (16-48); MONOCYTES % (MANUAL) 4 % (0-11.0); NEUTROPHILS % (MANUAL) 92 (42-76); OVALOCYTES 1+; PLATELET ESTIMATE DECREASED
[2023-09-06] MEDS: ACETYLCYSTEINE 10% SOLN 400 MG/4 ML VIAL NEB SCH (11:51)
[2023-09-07] VITALS (41 sets, daily range): BP systolic 108–152; BP diastolic 58–100; TEMP 96.6–97.6; O2SAT 86–100
[2023-09-07 04:19] LABS: BASOPHILS # (AUTO) 0.1 K/uL (0.0-0.2); BASOPHILS % (AUTO) 0.2 % (0.0-2.0); HEMATOCRIT 33 % (39-51); HEMOGLOBIN 10.8 g/dL (13.5-17.5); LYMPHOCYTES # (AUTO) 0.2 K/uL (0.8-4.8); LYMPHOCYTES % (AUTO) 0.8 % (20.0-44.0); MEAN CORPUSCULAR HEMOGLOBIN 29 PG (26.0-33.0); MEAN CORPUSCULAR HGB CONC 33 g/dl (31.0-36.0); MEAN CORPUSCULAR VOLUME 88 fL (80-96); MONOCYTES # (AUTO) 0.9 K/uL (0.1-1.30); MONOCYTES % (AUTO) 3.2 % (2.0-12.0); NEUTROPHILS % (AUTO) 95.8 % (43.0-81.0); PLATELET COUNT (AUTO) 82 K/uL (150-450); RED BLOOD CELL COUNT(AUTO) 3.77 MIL/uL (4.5-6.0); RED CELL DISTRIBUTION WIDTH 16.5 % (11.5-15.0); WHITE BLOOD COUNT (AUTO) 29.2 K/uL (4.3-11.0)
[2023-09-07 04:34] LABS: ALANINE AMINOTRANSFERASE 117 U/L (12-78); ALBUMIN 1.7 g/dL (3.4-5.0); ALKALINE PHOSPHATASE 98 U/L (46-116); ASPARTATE AMINOTRANSFERASE 59 U/L (15-37); BILIRUBIN,TOTAL 1.1 mg/dL (0.2-1.0); CARBON DIOXIDE 30 mmol/L (21-32); CHLORIDE 106 mmol/L (98-107); CREATININE 0.7 mg/dL (0.6-1.3); GLUCOSE 113 mg/dL (74-106); MAGNESIUM 2.2 mg/dL (1.8-2.4); PHOSPHORUS 2.8 mg/dL (2.5-4.9); POTASSIUM 4.8 mmol/L (3.5-5.1); SODIUM SERUM 142 mmol/L (136-145); TOTAL PROTEIN, SERUM 4.5 g/dL (6.4-8.2); UREA NITROGEN, BLOOD 52 mg/dL (7-18)
[2023-09-07 05:23] LABS: ANISOCYTOSIS 1+; BASOPHILS % (MANUAL) 0 % (0.0-2.0); EOSINOPHILS % (MANUAL) 0 % (0-4); LYMPHOCYTES % (MANUAL) 2 % (16-48); MONOCYTES % (MANUAL) 6 % (0-11.0); NEUTROPHILS % (MANUAL) 92 (42-76); PLATELET ESTIMATE DECREASED
[2023-09-07 15:10] LABS: *SPE A/G RATIO 0.9 (0.7-1.7); *SPE ALBUMIN 1.9 g/dL (2.9-4.4); *SPE ALPHA-1-GLOBULIN 0.2 g/dL (0.0-0.4); *SPE ALPHA-2-GLOBULIN 0.7 g/dL (0.4-1.0); *SPE BETA GLOBULIN 0.7 g/dL (0.7-1.3); *SPE GLOBULIN, TOTAL 2.1 g/dL (2.2-3.9); *SPE M-SPIKE Not Observed g/dL (Not Observed); *SPEGAMMA GLOBULIN 0.5 g/dL (0.4-1.8)
[2023-09-08] VITALS (42 sets, daily range): BP systolic 115–159; BP diastolic 65–142; TEMP 97.1–97.9; O2SAT 89–100
[2023-09-08 06:53] LABS: BASOPHILS # (AUTO) 0.3 K/uL (0.0-0.2); BASOPHILS % (AUTO) 0.9 % (0.0-2.0); EOSINOPHILS % (AUTO) 0.1 % (0.0-6.0); HEMATOCRIT 34 % (39-51); HEMOGLOBIN 10.5 g/dL (13.5-17.5); LYMPHOCYTES # (AUTO) 0.3 K/uL (0.8-4.8); LYMPHOCYTES % (AUTO) 1.1 % (20.0-44.0); MEAN CORPUSCULAR HEMOGLOBIN 28 PG (26.0-33.0); MEAN CORPUSCULAR HGB CONC 31 g/dl (31.0-36.0); MEAN CORPUSCULAR VOLUME 91 fL (80-96); MONOCYTES # (AUTO) 0.8 K/uL (0.1-1.30); MONOCYTES % (AUTO) 3.1 % (2.0-12.0); NEUTROPHILS # (AUTO) 26.2 K/uL (1.8-8.9); NEUTROPHILS % (AUTO) 94.8 % (43.0-81.0); PLATELET COUNT (AUTO) 82 K/uL (150-450); RED BLOOD CELL COUNT(AUTO) 3.69 MIL/uL (4.5-6.0); RED CELL DISTRIBUTION WIDTH 17.6 % (11.5-15.0); WHITE BLOOD COUNT (AUTO) 27.7 K/uL (4.3-11.0)
[2023-09-08 06:58] LABS: MAGNESIUM 2.2 mg/dL (1.8-2.4); PHOSPHORUS 2.9 mg/dL (2.5-4.9)
[2023-09-08 07:57] LABS: ALBUMIN 1.5 g/dL (3.4-5.0); BILIRUBIN,TOTAL 0.8 mg/dL (0.2-1.0); CALCIUM, SERUM 8.8 mg/dL (8.5-10.1); CREATININE 0.8 mg/dL (0.6-1.3); POTASSIUM 5.2 mmol/L (3.5-5.1); TOTAL PROTEIN, SERUM 4.1 g/dL (6.4-8.2)
[2023-09-08 12:13] LABS: ANISOCYTOSIS 1+; BAND % (MANUAL) 1 % (0.0-5.0); BASOPHILS % (MANUAL) 0 % (0.0-2.0); EOSINOPHILS % (MANUAL) 0 % (0-4); LYMPHOCYTES % (MANUAL) 2 % (16-48); MONOCYTES % (MANUAL) 6 % (0-11.0); NEUTROPHILS % (MANUAL) 91 (42-76); OVALOCYTES 1+; PLATELET ESTIMATE DECREASED
[2023-09-08 15:20] LABS: CALCIUM, SERUM 8.9 mg/dL (8.5-10.1); CREATININE 0.8 mg/dL (0.6-1.3); POTASSIUM 5.2 mmol/L (3.5-5.1)
[2023-09-09] VITALS (36 sets, daily range): BP systolic 96–135; BP diastolic 64–93; TEMP 97.6–98; O2SAT 95–100
[2023-09-09 04:51] LABS: BASOPHILS # (AUTO) 0.4 K/uL (0.0-0.2); BASOPHILS % (AUTO) 1.2 % (0.0-2.0); EOSINOPHILS % (AUTO) 0.1 % (0.0-6.0); HEMATOCRIT 38 % (39-51); HEMOGLOBIN 12.1 g/dL (13.5-17.5); LYMPHOCYTES # (AUTO) 0.4 K/uL (0.8-4.8); LYMPHOCYTES % (AUTO) 1.2 % (20.0-44.0); MEAN CORPUSCULAR HEMOGLOBIN 29 PG (26.0-33.0); MEAN CORPUSCULAR HGB CONC 32 g/dl (31.0-36.0); MEAN CORPUSCULAR VOLUME 90 fL (80-96); MONOCYTES % (AUTO) 3.1 % (2.0-12.0); NEUTROPHILS # (AUTO) 30.6 K/uL (1.8-8.9); NEUTROPHILS % (AUTO) 94.4 % (43.0-81.0); PLATELET COUNT (AUTO) 83 K/uL (150-450); RED BLOOD CELL COUNT(AUTO) 4.17 MIL/uL (4.5-6.0); RED CELL DISTRIBUTION WIDTH 16.8 % (11.5-15.0)
[2023-09-09 05:07] LABS: ALANINE AMINOTRANSFERASE 81 U/L (12-78); ALBUMIN 1.6 g/dL (3.4-5.0); ALKALINE PHOSPHATASE 113 U/L (46-116); ASPARTATE AMINOTRANSFERASE 22 U/L (15-37); BILIRUBIN,TOTAL 0.8 mg/dL (0.2-1.0); CALCIUM, SERUM 8.3 mg/dL (8.5-10.1); CARBON DIOXIDE 24 mmol/L (21-32); CHLORIDE 102 mmol/L (98-107); CREATININE 0.7 mg/dL (0.6-1.3); GLUCOSE 144 mg/dL (74-106); MAGNESIUM 2.1 mg/dL (1.8-2.4); PHOSPHORUS 2.6 mg/dL (2.5-4.9); POTASSIUM 4.7 mmol/L (3.5-5.1); SODIUM SERUM 134 mmol/L (136-145); TOTAL PROTEIN, SERUM 4.6 g/dL (6.4-8.2); UREA NITROGEN, BLOOD 42 mg/dL (7-18)
[2023-09-09 05:22] LABS: WHITE BLOOD COUNT (AUTO) 32.4 K/uL (4.3-11.0)
[2023-09-09 05:59] LABS: BASOPHILS % (MANUAL) 0 % (0.0-2.0); EOSINOPHILS % (MANUAL) 0 % (0-4); LYMPHOCYTES % (MANUAL) 3 % (16-48); MONOCYTES % (MANUAL) 6 % (0-11.0); NEUTROPHILS % (MANUAL) 91 (42-76); PLATELET ESTIMATE DECREASED
[2023-09-09 06:00] LABS: ANISOCYTOSIS 1+; OVALOCYTES 1+
[2023-09-09 08:33] LABS: ABG BASE EXCESS 2.8 mmol/L; ABG PCO2 39.5 mmHg (35.0-45.0); ABG PH 7.451 (7.350-7.450); ABG PO2 81.4 mmHg (75.0-100.0); ABG TOTAL HEMOGLOBIN 13.1 G/dL (13.5-18.0); AaDO2 592.1 mmHg; COHb 0.6 % (0.5-1.5); MetHb 0.1 % (0.0-1.5); O2Hb 95.3 % (94.0-97.0); SITE, ABG Left Radial; VENT MODE, BG HFNC 100%
== END 2023-09-09 21:45 | DRG 870 ==
LOC: ER 22:10 → TELE1 23:29 → ICU 08-22 03:46
PROVIDERS: ADMIT Internal Medicine
PROC: 5A1945Z Respiratory Ventilation, 24-96 Consecutive Hours (ICD-10-PCS; 2023-08-22)
PROC: 0BH17EZ Insertion of Endotracheal Airway into Trachea, Via Natural or Artificial Opening (ICD-10-PCS; 2023-08-22)
PROC: 02HV33Z Insertion of Infusion Device into Superior Vena Cava, Percutaneous Approach (ICD-10-PCS; 2023-08-22)
PROC: B548ZZA Ultrasonography of Superior Vena Cava, Guidance (ICD-10-PCS; 2023-08-22)
PROC: 0BB48ZX Excision of Right Upper Lobe Bronchus, Via Natural or Artificial Opening Endoscopic, Diagnostic (ICD-10-PCS; principal; 2023-08-23)
PROC: 5A1955Z Respiratory Ventilation, Greater than 96 Consecutive Hours (ICD-10-PCS; 2023-08-26)
PROC: 0BH18EZ Insertion of Endotracheal Airway into Trachea, Via Natural or Artificial Opening Endoscopic (ICD-10-PCS; 2023-08-26)
PROC: 0W993ZZ Drainage of Right Pleural Cavity, Percutaneous Approach (ICD-10-PCS; 2023-08-29)
PROC: 0W9930Z Drainage of Right Pleural Cavity with Drainage Device, Percutaneous Approach (ICD-10-PCS; 2023-08-31)
PROC: 30233M1 Transfusion of Nonautologous Plasma Cryoprecipitate into Peripheral Vein, Percutaneous Approach (ICD-10-PCS; 2023-09-01)
PROC: 05H933Z Insertion of Infusion Device into Right Brachial Vein, Percutaneous Approach (ICD-10-PCS; 2023-09-03)
PROC: B54MZZA Ultrasonography of Right Upper Extremity Veins, Guidance (ICD-10-PCS; 2023-09-03)
DX: A41.02 Sepsis due to Methicillin resistant Staphylococcus aureus (principal); E43 Unspecified severe protein-calorie malnutrition; R65.21 Severe sepsis with septic shock; J96.01 Acute respiratory failure with hypoxia; J96.02 Acute respiratory failure with hypercapnia; N17.0 Acute kidney failure with tubular necrosis; J15.212 Pneumonia due to Methicillin resistant Staphylococcus aureus; G92.8 Other toxic encephalopathy; C34.11 Malignant neoplasm of upper lobe, right bronchus or lung; E87.20 Acidosis, unspecified; J90 Pleural effusion, not elsewhere classified; E22.2 Syndrome of inappropriate secretion of antidiuretic hormone; J44.0 Chronic obstructive pulmonary disease with (acute) lower respiratory infection; I10 Essential (primary) hypertension; D64.9 Anemia, unspecified; D69.6 Thrombocytopenia, unspecified; E87.5 Hyperkalemia; E88.09 Other disorders of plasma-protein metabolism, not elsewhere classified; M89.8X9 Other specified disorders of bone, unspecified site; E87.70 Fluid overload, unspecified; Z20.822 Contact with and (suspected) exposure to COVID-19; E86.0 Dehydration; F17.210 Nicotine dependence, cigarettes, uncomplicated; Z68.22 Body mass index [BMI] 22.0-22.9, adult; F15.10 Other stimulant abuse, uncomplicated; F11.10 Opioid abuse, uncomplicated; I48.0 Paroxysmal atrial fibrillation; E80.6 Other disorders of bilirubin metabolism; B19.20 Unspecified viral hepatitis C without hepatic coma; R73.9 Hyperglycemia, unspecified
CPT/HCPCS: 31720; 36415; 36569; 36600; 71045-TC; 71250-TC; 74018; 76604-TC; 80048-TC; 80053-TC; 80076-TC; 80202-TC; 81001; 82378; 82607-TC; 82728-TC; 82784; 82803-TC; 82945-TC; 82962-TC; 83540-TC; 83605-TC; 83735-TC; 84100-TC; 84155; 84165; 84443-TC; 84478-TC; 84484-TC; 85025-TC; 85378-TC; 85385-TC; 85396; 85610-TC; 85730-TC; 86140-TC; 86225; 86235; 86334; 86431-TC; 86706; 86803; 86850-TC; 87040-TC; 87086-TC; 87102-TC; 87340; 87806; 88104-TC; 88108-TC; 88305-TC; 89051-TC; 92526; 92611-TC; 93307-TC; 94002-TC; 94003-TC; 94640-TC; 94760-TC; 94762-TC; 94799-TC; 99082-TC; A4216; A4223; A4349; A6253; A6403; A7526; G0378; J0282; J0330; J0360; J0692; J0696; J1650; J1815; J1940; J1956; J2060; J2405; J2543; J2704; J2765; J2919; J3370; J3371; J3490; J7030; J7040; J7042; J7050; J7060; J7070; P9012; P9047; Q9967